=== PATIENT | female | born 1960 | race Caucasian/White ===

== ENCOUNTER 2024-08-05 11:15 | Emergency (ER) | payer MEDICARE, BC ==
[~2024-08-05] VITALS: Ht 160 cm; Wt 72.6 kg
[2024-08-05] MEDS ORDERED: SERT-438 PO (11:43)
[2024-08-05] MEDS: FAMOTIDINE. 20 MG/2 ML VIAL IV ONE (12:45)
[2024-08-05] MEDS: diphenhydrAMINE 50 MG/1 ML VIAL IV ONE (12:45)
[2024-08-05] MEDS: methylPREDNISolone SOD SUCC 125 MG/2 ML VIAL IV ONE (12:45)
[2024-08-05] MEDS: IV NORMAL SALINE 1000 ML BAG IV ONE (12:45)
[2024-08-05] MEDS ORDERED: diphenhydrAMINE 50 MG/1 ML VIAL ONE (13:15)
[2024-08-05] MEDS ORDERED: methylPREDNISolone SOD SUCC 125 MG/2 ML VIAL ONE (13:15)
[2024-08-05] MEDS ORDERED: FAMOTIDINE. 20 MG/2 ML VIAL IV ONE (13:15)
[2024-08-05 13:16] LABS: BASOPHILS % (AUTO) 0.4 % (0.0-2.0); EOSINOPHILS % (AUTO) 0.1 % (0.0-7.0); HEMATOCRIT 34.3 % (31.2-41.9); HEMOGLOBIN 12.1 g/dL (10.9-14.3); LYMPHOCYTES % (AUTO) 11.3 % (20.5-51.5); MEAN CORPUSCULAR HEMOGLOBIN 29.2 uug (24.7-32.8); MEAN CORPUSCULAR HGB CONC 35 g/dL (32.3-35.6); MONOCYTES # (AUTO) 0.3 K/uL (0.1-1.30); MONOCYTES % (AUTO) 3.2 % (0.0-11.0); NEUTROPHILS # (AUTO) 7.3 K/uL (1.8-8.9); PLATELET COUNT (AUTO) 218 K/uL (179-408); RED BLOOD CELL COUNT(AUTO) 4.13 MIL/uL (3.63-4.92); RED CELL DISTRIBUTION WIDTH 13.9 % (12.3-17.7); WHITE BLOOD COUNT (AUTO) 8.6 K/uL (3.8-11.8)
[2024-08-05 13:18] LABS: DIFFERENTIAL COMMENT 1
[2024-08-05 13:23] LABS: CALCIUM 8.4 mg/dL (8.5-10.1); CARBON DIOXIDE 25 mmol/L (21-32); CHLORIDE 106 mmol/L (98-107); CREATININE 0.7 mg/dL (0.6-1.3); GLUCOSE 129 mg/dL (74-106); POTASSIUM 4.2 mmol/L (3.5-5.1); SODIUM SERUM 141 mmol/L (136-145); UREA NITROGEN, BLOOD 15 mg/dL (7-18)
[2024-08-05 13:35] LABS: ALANINE AMINOTRANSFERASE 26 U/L (14-59); ALBUMIN 3.4 g/dL (3.4-5.0); ALKALINE PHOSPHATASE 74 U/L (50-136); ASPARTATE AMINOTRANSFERASE 26 U/L (15-37); BILIRUBIN,DIRECT 0.2 mg/dL (0.0-0.2); TOTAL PROTEIN, SERUM 6.5 g/dL (6.4-8.2)
[2024-08-05] MEDS ORDERED: CLIN300C3 PO (16:27)
[2024-08-05] MEDS ORDERED: PRED50TA PO (16:27)
[2024-08-05 18:27] VITALS: BP 130/64; TEMP 98.7; O2SAT 98
== END 2024-08-05 18:30 | disposition home or self-care (01) ==
LOC: ER 11:15
DX: L03.221 Cellulitis of neck (principal); R07.9 Chest pain, unspecified; I10 Essential (primary) hypertension; M54.2 Cervicalgia; R13.10 Dysphagia, unspecified; F17.200 Nicotine dependence, unspecified, uncomplicated; Z79.52 Long term (current) use of systemic steroids
CPT/HCPCS: 99285; 96374; 70490; 96361; 96375; 71045; 80076; 80048; 85025; 84484; 36415; J2919; J1200; J3490; J7040; A4606; A4663